=== PATIENT | female | born 1970 ===

== ENCOUNTER 2025-04-10 12:36 | Outpatient (CLI) | payer MEDICARE ==
[~2025-04-10 12:36] MED LIST: ATOR-429 PO; CARSR60C PO; HYDR200T73 PO; LEVO137T24 PO; METO50TA7 PO; NORT25CA PO; OMEP40CA21 PO; TEMA30CA5 PO; TOPI200T68 PO
--- NOTE | 2025-04-10 14:34 | RADIOLOGY REPORT ---
CLINICAL INFORMATION: Low-back pain. TECHNIQUE: Multisequence multiplanar MRI images of the lumbar spine were obtained without contrast. COMPARISON: CT of the abdomen and pelvis dated 11/22/2022. INTERPRETATION: Mild straightening of the normal lumbar lordosis. No significant spondylolisthesis. Vertebral body heights are maintained. Posterior elements are intact. No focal suspicious marrow signal abnormality. Visualized spinal cord and cauda equina are within normal limits. The conus med ullaris is appropriate in signal at the L1 level. Acro-cv-ejzsbthj fatty atrophy of the paraspinal m usculature in the lumbar spine. Nonspecific subcutaneous edema and focal fluid in the posterior subcu taneous tissues near the midline. L1-L2: Disc desiccation. No significant spinal canal or neural foraminal stenosis. L2-L3: Disc desiccation with mild disc space narrowing and diffuse disc bulge mildly indenting the v entral aspect of the thecal sac. No significant spinal canal or neural foraminal stenosis. L3-L4: Disc desiccation. Minimal disc bulge mildly flattening the ventral aspect of the thecal sac. No significant spinal canal stenosis. No significant neural foraminal stenosis. L4-L5: Disc desiccation. Mild disc bulge mildly flattening the ventral aspect of the thecal sac. No significant spinal canal stenosis. Facet hypertrophy with [id number] bilateral neural foramina l stenoses. L5-S1: Disc desiccation. Minimal disc bulge mildly flattening the ventral aspect of the thecal sac. No significant spinal canal stenosis. Facet hypertrophy with [id number] bilateral neural helio inal stenoses. IMPRESSION: 1. Degenerative disc disease and facet disease in the lumbar spine with associated neural foraminal s tenoses as described above. No significant spinal canal stenosis. 2. Additional findings as described above.
== END 2025-04-10 23:59 | disposition home or self-care (01) ==
LOC: MRI 12:36
PROVIDERS: ATTEND Family Medicine
DX: M47.817 Spondylosis without myelopathy or radiculopathy, lumbosacral region (principal); M41.86 Other forms of scoliosis, lumbar region; M54.50 Low back pain, unspecified; M48.07 Spinal stenosis, lumbosacral region; M51.369 Other intervertebral disc degeneration, lumbar region without mention of lumbar back pain or lower extremity pain; M62.50 Muscle wasting and atrophy, not elsewhere classified, unspecified site
CPT/HCPCS: 72148